=== PATIENT | male | born 1985 | race Caucasian/White ===

== ENCOUNTER 2016-09-28 16:49 | Emergency (ER) | payer SELFPAY ==
[~2016-09-28] VITALS: Ht 167.6 cm; Wt 69.5 kg
--- OUTSIDE RECORDS SUMMARY | 2016-09-28 16:54 | XMS REPORT | Continuity of Care Document ---
Author Author [facility] Organization [facility] Address Unknown Phone Unavailable Allergies Active Description Code Type Severity Reaction Onset Reported/Identified Relationship to Patient Clinical Status Yes No Known Allergies Drug Allergy 03/26/2012 Yes No Known Allergies Drug Allergy N/A N/A 03/26/2012 Yes No Known Drug Allergies Drug Allergy 03/26/2012 Yes No Known Drug Allergies Drug Allergy N/A N/A 03/26/2012 Yes No Known Food Allergies Food Allergy 03/26/2012 Yes No Known Food Allergies Food Allergy N/A N/A 03/26/2012 Medications Problems Date Dx Coded Attending Type Code Diagnosis Diagnosed By 05/23/2013 Ezra [email or web address] MD Final 493.90 ASTHMA NOS 05/23/2013 Ezra Rodriguez MD Final 930.0 FB IN CORNEA 05/23/2013 Ezra Rodriguez MD Admitting 930.9 FB IN EXTERNAL EYE NOS 05/23/2013 Ezra Rodriguez MD External E029.9 ACTIVITY NEC 05/23/2013 Ezra Rodriguez MD External E849.0 HOME ACCIDENTS 05/23/2013 Ezra Rodriguez MD External E914 FB ENTERING EYE 05/23/2013 Ezra Rodriguez MD Final V06.1 DTP/DTAP VACCINE Procedures Results Encounters ACCT No. Visit Date/Time Discharge Status Pt. Type Provider Facility Loc./Unit Complaint [id number] 05/23/2013 17:07:00 2013 19:07:00 DIS Emergency Ezra Rodriguez MD [facility] on [address] [id number] 03/26/2012 17:22:00 2011 18:50:00 DIS Emergency Heraclio Rodriguez MD [facility] on [address]
[2016-09-28 16:55] VITALS: Ht 167.6 cm; Wt 69.5 kg
[2016-09-28] MEDS ORDERED: ALBUTEROL/IPRATROPIUM INHAL. 2.5mg-0.5mg/3ml Neb. AEROSOL ONE (17:00)
[2016-09-28] MEDS ORDERED: ALBU8.5H INH (17:09)
[2016-09-28] MEDS ORDERED: [UNRECOGNIZED DRUG - OTHER] PO (17:09)
[2016-09-28] MEDS ORDERED: FLUT9.9S NAS (17:09)
[2016-09-28] MEDS ORDERED: DIPH25CA84 PO (17:09)
--- NOTE | 2016-09-28 17:20 | ERPDOC ---
Departure Disposition Decision Date: September 28, 2016 Disposition Decision Time: 17:44 Disposition: 01 DISCHARGED HOME, SELF-CARE Impression Impression Impression: Primary Impression: Asthmatic bronchitis with acute exacerbation Severity: Moderate Condition: Stable Seen By: Physician only Patient Instructions: Asthma (ED), Upper Respiratory Infection (ED) Problems/Meds/Labs Reviewed?: Yes Medications reviewed and manag: Yes Additional Instructions: Follow-up with your primary care physician if symptoms are not improving Departure Forms: Return to Work/School Permit Return to Work/School Date: September 29, 2016 Follow up care ordered?: Yes Mental Status: Alert, Oriented Scripts Azithromycin (Azithromycin) 250 Mg Tablet 1 PACK PO DIRECTED, #1 PACK Take 2 tabs the first day then 1 tab daily on days 2 through 5 Prov: EYAL STALLWORTH MD 09/28/16 Prednisone (Prednisone) 20 Mg Tablet 20 MG PO DIRECTED, #18 TAB 0 Refills Take 3 pills for 3 days THEN, Take 2 pills for 3 days THEN, Take 1 pill for 3 days THEN STOP. Prov: EYAL STALLWORTH MD 09/28/16 HPI - Dyspnea General Chief Complaint: Adult-Asthma Stated Complaint: DIFFICULTY BREATHING Time Seen by Provider: 17:03 HPI - Dyspnea Allergies: Coded Allergies: amoxicillin (Verified Allergy, Mild, RASH, 09/28/16) carbinoxamine (Unverified Allergy, Mild, 09/28/16) clavulanic acid (Verified Allergy, Mild, RASH, 09/28/16) pseudoephedrine (Unverified Allergy, Mild, 09/28/16) Physical Exam General Vitals and Pain First Documented Vital Signs Date Time Temp Pulse Resp B/P Pulse Ox O2 Delivery O2 Flow Rate FiO2 09/28/16 16:55 98.6 92 22 116/71 95 Room Air Weight: Kilograms: Height (feet): Height (inches): Triage Pain Scale: Progress Results/Orders Orders Procedure Category Date Status Time Albuterol/Ipratropium PHA 09/28/16 Complete (Duoneb) 17:00 Prednisone PHA 09/28/16 Complete (Prednisone) 17:15 Medications Current ED Medications Albuterol/ Ipratropium (Duoneb) 3 ml O ONCE AEROSOL ; Start 09/28/16 at 17:00; Stop 09/28/16 at 17:01; Status DC Prednisone (PredniSONE) 60 mg O ONCE PO Last administered on 09/28/16t 17:36; Start 09/28/16 at 17:15; Stop 09/28/16 at 17:16; Status DC EYAL STALLWORTH MD September 28, 2016 17:20
--- OUTSIDE RECORDS SUMMARY | 2016-09-28 17:20 | XMS REPORT | Continuity of Care Document ---
Author Author [facility] Organization [facility] Address Unknown Phone Unavailable Allergies Active [...] Type Code Diagnosis Diagnosed By 05/23/2013 Ezra Rodriguez MD Final 493.90 ASTHMA NOS 05/23/2013 Ezra [...] Status Pt. Type Provider Facility Loc./Unit Complaint [id number] 05/23/2013 17:07:00 2013 19:07:00 DIS Emergency Ezra Rodriguez MD [facility] on [address] [id number] 03/26/2012 17:22:00 2011 18:50:00 DIS Emergency Heraclio Rodriguez MD [facility] on [address]
[2016-09-28] MEDS: PredniSONE 10 MG TABLET PO ONE (17:36)
[2016-09-28] MEDS ORDERED: AZIT250T6 PO (17:46)
[2016-09-28] MEDS ORDERED: PRED20TA PO (17:46)
[2016-09-28 17:55] VITALS: BP 109/73; PULSE 84; RESP 16; TEMP 98.6; O2SAT 96
[2016-09-28] MEDS: LORATADINE/PSE 5/120 TABLET PO ONE (17:56)
== END 2016-09-28 17:55 | disposition home or self-care (01) ==
LOC: ED 16:49
DX: J45.901 Unspecified asthma with (acute) exacerbation (principal)
CPT/HCPCS: 94640